=== PATIENT | female | born 1940 | race Caucasian/White ===

== ENCOUNTER 2018-01-26 20:49 | Emergency (ER) | payer MEDICARE, OTHER ==
[2018-01-26 21:47] LABS: ABSOLUTE BASOPHILS # (AUTO) 0.1 10^3/uL (0.0-0.2); ABSOLUTE EOSINOPHILS # (AUTO) 0.4 10^3/uL (0.0-0.6); ABSOLUTE LYMPHOCYTES (AUTO) 1.3 10^3/uL (0.5-4.7); ABSOLUTE MONOCYTES (AUTO) 0.6 10^3/uL (0.1-1.4); ABSOLUTE NEUT (AUTO) 5.4 10^3/uL (1.7-8.2); BASOPHILS % (AUTO) 1.1 % (0-2); EOSINOPHILS % (AUTO) 4.8 % (0-6); HEMATOCRIT 26.8 % (36.0-47.0); HEMOGLOBIN 8.9 g/dL (12.0-15.5); LYMPHOCYTES % (AUTO) 16.5 % (13-45); MEAN CORPUSCULAR HEMOGLOBIN 29.5 pg (27.0-33.4); MEAN CORPUSCULAR HGB CONC 33.4 g/dL (32.0-36.0); MEAN CORPUSCULAR VOLUME 88 fl (80-97); MONOCYTES % (AUTO) 7.5 % (3-13); PLATELET COUNT 284 10^3/uL (150-450); RED BLOOD COUNT 3.03 10^6/uL (3.72-5.28); SEGMENTED NEUTROPHILS % (AUTO) 70.1 % (42-78); TOTAL CELLS COUNTED % (AUTO) 100 %; WHITE BLOOD COUNT 7.7 10^3/uL (4.0-10.5)
[2018-01-26 21:53] LABS: ALANINE AMINOTRANSFERASE 31 U/L (9-52); ALBUMIN 4.3 g/dL (3.5-5.0); ALKALINE PHOSPHATASE 67 U/L (38-126); ANION GAP 10 (5-19); ASPARTATE AMINO TRANSFERASE 33 U/L (14-36); BILIRUBIN,DIRECT 0.4 mg/dL (0.0-0.4); BILIRUBIN,TOTAL 0.6 mg/dL (0.2-1.3); BLOOD UREA NITROGEN 28 mg/dL (7-20); CALCIUM 9.8 mg/dL (8.4-10.2); CARBON DIOXIDE 36 mmol/L (22-30); CHLORIDE 97 mmol/L (98-107); GLUCOSE 134 mg/dL (75-110); POTASSIUM 4.1 mmol/L (3.6-5.0); SODIUM 143.1 mmol/L (137-145); TOTAL PROTEIN 7.2 g/dL (6.3-8.2)
[2018-01-26 22:05] LABS: TROPONIN I 0.03 ng/mL
--- NOTE | 2018-01-26 22:12 | RADIOLOGY REPORT (SQ) ---
EXAM DESCRIPTION: CHEST SINGLE VIEW COMPLETED DATE/TIME: 01/26/2018 9:52 pm REASON FOR STUDY: cp COMPARISON: None. EXAM PARAMETERS: NUMBER OF VIEWS: One view. TECHNIQUE: Single frontal radiographic view of the chest acquired. RADIATION DOSE: NA LIMITATIONS: None. FINDINGS: LUNGS AND PLEURA: There is blunting of the left costophrenic angle suggestive of a small p leural effusion. There is mild bibasilar atelectasis. No pneumothorax. MEDIASTINUM AND HILAR STRUCTURES: No masses. Contour normal. HEART AND VASCULAR STRUCTURES: Heart normal in size. Normal vasculature. BONES: No acute findings. HARDWARE: Sternotomy wires are present. OTHER: There is gaseous distension of the visualized stomach in the left upper quadrant. IMPRESSION: Small left pleural effusion. Mild bibasilar atelectasis. Gaseous distension of the visualized stomach. TECHNICAL DOCUMENTATION: JOB ID: [id number] [employer]- All Rights Reserved Reading location - IP/workstation name: [email or web address]
[2018-01-26] MEDS ORDERED: IPRATROPIUM/ALBUTEROL 0.5-2.5 MG/3 ML AMPUL NEB ONE (23:11)
[2018-01-26] MEDS ORDERED: FUROSEMIDE INJ/PF 20 MG/2 ML SDV IV ONE (23:13)
--- NOTE | 2018-01-26 23:20 | ER Document Report ---
ED General - General Chief Complaint: Chest Pain Stated Complaint: CHEST PAIN Time Seen by Provider: 01/26/18 21:31 Mode of Arrival: Medic Information source: Patient, Outside Facility Records TRAVEL OUTSIDE OF THE [place] IN LAST 30 DAYS: No - HPI Patient complains to provider of: chest pain Onset: Just prior to arrival Onset/Duration: Sudden Quality of pain: Stabbing Severity: Moderate Context: right sided Associated symptoms: None Exacerbated by: Denies Relieved by: Denies Similar symptoms previously: Yes Recently seen / treated by doctor: Yes - Related Data Allergies/Adverse Reactions: Fish Containing Products Allergy (Verified 01/26/18 21:54) Penicillins Allergy (Verified 01/26/18 21:54) Tetracyclines Allergy (Verified 01/26/18 21:54) Past Medical History - General Information source: Patient - Social History Smoking Status: Former Smoker Frequency of alcohol use: None Drug Abuse: None Lives with: Shelter Family History: Hypertension Patient has suicidal ideation: No Patient has homicidal ideation: No - Past Medical History Cardiac Medical History: Reports: Hx Atrial Fibrillation - and A Flutter, Hx Congestive Heart Failure - Diastolic, Hx Coronary Artery Disease, Hx Heart Attack - NSTEMI, Hx Hypercholesterolemia, Hx Hypertension Other: anemia Pulmonary Medical History: Reports: Hx COPD, Hx Pneumonia Neurological Medical History: Reports: None Renal/ Medical History: Denies: Hx Peritoneal Dialysis GI Medical History: Reports: Hx Gastroesophageal Reflux Disease Past Surgical History: Reports: Hx Cardiac Catheterization, Hx Coronary Artery Bypass Graft - 01/10/2018 Review of Systems - Review of Systems Constitutional: No symptoms reported EENT: No symptoms reported Cardiovascular: See HPI Respiratory: See HPI Gastrointestinal: No symptoms reported Genitourinary: No symptoms reported Musculoskeletal: Leg swelling, Ankle swelling Skin: No symptoms reported Hematologic/Lymphatic: Anemia Neurological/Psychological: No symptoms reported Physical Exam - Vital signs Vitals: Pulse Ox 95 01/26/18 20:55 - Notes Notes: PHYSICAL EXAMINATION: GENERAL:Pale, obese female, sitting up in bed watching tv in NAD HEAD: Atraumatic, normocephalic. EYES: Pupils equal round and reactive to light, extraocular movements intact, conjunctiva are normal. ENT: Nares patent, oropharynx clear without exudates. Moist mucous membranes. NECK: Normal range of motion, supple without lymphadenopathy LUNGS: Breath sounds clear to auscultation bilaterally and equal. No wheezes rales or rhonchi. HEART: Regular rate and rhythm ABDOMEN: Soft, nontender, nondistended abdomen. No guarding, no rebound. No masses appreciated. Female : deferred Musculoskeletal: Normal range of motion, +2 pitting edema NEUROLOGICAL: Cranial nerves grossly intact. Normal speech Normal sensory, motor exams PSYCH: Normal mood, normal affect. SKIN: Warm, Dry, normal turgor, no rashes or lesions noted. Healing incisional chest wound without s/s/ infection and healing well. Course - Re-evaluation Re-evalutation: 01/27/18 01:02 Labs- All tests 24 hr 01/26/18 01/26/18 01/26/18 21:03 21:03 21:03 WBC 7.7 RBC 3.03 L Hgb 8.9 L Hct 26.8 L MCV 88 MCH 29.5 MCHC 33.4 RDW 16.0 H Plt Count 284 Seg Neutrophils % 70.1 Lymphocytes % 16.5 Monocytes % 7.5 Eosinophils % 4.8 Basophils % 1.1 Absolute Neutrophils 5.4 Absolute Lymphocytes 1.3 Absolute Monocytes 0.6 Absolute Eosinophils 0.4 Absolute Basophils 0.1 Sodium 143.1 Potassium 4.1 Chloride 97 L Carbon Dioxide 36 H Anion Gap 10 BUN 28 H Creatinine 1.05 Est GFR ( Amer) > 60 Est GFR (Non-Af Amer) 51 L Glucose 134 H Calcium 9.8 Magnesium 1.8 Total Bilirubin 0.6 Direct Bilirubin 0.4 Neonat Total Bilirubin Not Reportable Neonat Direct Bilirubin Not Reportable Neonat Indirect Bili Not Reportable AST 33 ALT 31 Alkaline Phosphatase 67 Troponin I 0.030 NT-Pro-B Natriuret Pep 1230 H Total Protein 7.2 Albumin 4.3 01/26/18 23:54 WBC RBC Hgb Hct MCV MCH MCHC RDW Plt Count Seg Neutrophils % Lymphocytes % Monocytes % Eosinophils % Basophils % Absolute Neutrophils Absolute Lymphocytes Absolute Monocytes Absolute Eosinophils Absolute Basophils Sodium Potassium Chloride Carbon Dioxide Anion Gap BUN Creatinine Est GFR ( Amer) Est GFR (Non-Af Amer) Glucose Calcium Magnesium Total Bilirubin Direct Bilirubin Neonat Total Bilirubin Neonat Direct Bilirubin Neonat Indirect Bili AST ALT Alkaline Phosphatase Troponin I 0.030 NT-Pro-B Natriuret Pep Total Protein Albumin Chest X-Ray 01/26/18 21:31 IMPRESSION: Small left pleural effusion. Mild bibasilar atelectasis. Gaseous distension of the visualized stomach. - Vital Signs Vital signs: Temp Pulse Resp BP Pulse Ox 98.1 F 22 H 132/64 H 99 01/27/18 00:45 01/27/18 00:01 01/27/18 00:01 01/27/18 00:01 - Laboratory Result Diagrams: 01/26/18 21:03 01/26/18 21:03 Laboratory results interpreted by me: 01/26/18 01/26/18 01/26/18 21:03 21:03 21:03 RBC 3.03 L Hgb 8.9 L Hct 26.8 L RDW 16.0 H Chloride 97 L Carbon Dioxide 36 H BUN 28 H Est GFR (Non-Af Amer) 51 L Glucose 134 H NT-Pro-B Natriuret Pep 1230 H - Diagnostic Test Radiology reviewed: Image reviewed, Reports reviewed - EKG Interpretation by Me EKG shows normal: Sinus rhythm - 97 Rate: Normal When compared to previous EKG there are: Previous EKG unavailable Additional EKG results interpreted by me: 01/27/18 01:04 NSST T changes Discharge - Discharge Clinical Impression: Anemia, Edema, Pleural effusion, left Condition: Stable Disposition: HOME-SNF (ED ONLY) Instructions: Chest Wall Pain ([facility]) Additional Instructions: Follow-up with your final inspector and tester as previously scheduled. Please return to the emergency department if you have worsening symptoms. Please continue outpatient medications as previously prescribed. Referrals: FAITH TATE MD [Primary Care Provider] - Follow up tomorrow (call in am for follow up)
[2018-01-27 01:54] VITALS: BP 112/56
--- NOTE | 2018-01-27 10:10 | EKG REPORT ---
SEVERITY:- ABNORMAL ECG - A-FLUTTER W/ PREDOM 3:1 AV BLOCK, CAN NOT R/O SINUS RHYTHM, REC REPEAT EKG NONSPECIFIC T ABNORMALITIES, DIFFUSE LEADS : Confirmed by: William Nieves 27-Jan-2018 10:09:55
== END 2018-01-27 01:56 ==
LOC: ER 20:49
DX: D64.9 Anemia, unspecified (principal); R60.9 Edema, unspecified; J90 Pleural effusion, not elsewhere classified; R07.9 Chest pain, unspecified; I48.91 Unspecified atrial fibrillation; I50.9 Heart failure, unspecified; E78.00 Pure hypercholesterolemia, unspecified; I11.0 Hypertensive heart disease with heart failure; J44.9 Chronic obstructive pulmonary disease, unspecified; Z88.0 Allergy status to penicillin; Z87.891 Personal history of nicotine dependence; I25.2 Old myocardial infarction; Z95.1 Presence of aortocoronary bypass graft
CPT/HCPCS: 93005; 99285; 36415; 83735; 85025; 80053; 84484; 83880; 71045; 93010; J1940; A9270; J7620

== ENCOUNTER 2018-02-03 02:49 | Emergency (ER) | payer MEDICARE, OTHER ==
--- NOTE | 2018-02-03 03:04 | ER Document Report ---
ED General - General Stated Complaint: FALL Time Seen by Provider: 02/03/18 02:53 Notes: Patient is a 78-year-old female presents with complaint of a fall. She said she was getting up in her room turn off the lights when the legs felt weak and she slipped and fell backwards her butt and right hip onto the floor. Said she also the back of her head. She says she has just very mild pain in her head. She denies any vomiting. No confusion. No recent fevers or infections. No other complaints at this time. She is on Eliquis. TRAVEL OUTSIDE OF THE [place] IN LAST 30 DAYS: No - Related Data Allergies/Adverse Reactions: Fish Containing Products Allergy (Verified 01/26/18 21:54) Penicillins Allergy (Verified 01/26/18 21:54) Tetracyclines Allergy (Verified 01/26/18 21:54) Past Medical History - Social History Smoking Status: Unknown if Ever Smoked Frequency of alcohol use: None Drug Abuse: None Family History: Hypertension - Past Medical History Cardiac Medical History: Reports: Hx Atrial Fibrillation - and A Flutter, Hx Congestive Heart Failure - Diastolic, Hx Coronary Artery Disease, Hx Heart Attack - NSTEMI, Hx Hypercholesterolemia, Hx Hypertension Pulmonary Medical History: Reports: Hx COPD, Hx Pneumonia Renal/ Medical History: Denies: Hx Peritoneal Dialysis GI Medical History: Reports: Hx Gastroesophageal Reflux Disease Past Surgical History: Reports: Hx Cardiac Catheterization, Hx Coronary Artery Bypass Graft - 01/10/2018 Review of Systems - Review of Systems Notes: My Normal Review Basic REVIEW OF SYSTEMS: CONSTITUTIONAL : Denies fever, chills, or sweats. Denies recent illness. EENT: Denies eye, ear, throat, or mouth pain or symptoms. Denies nasal or sinus congestion. CARDIOVASCULAR: Denies chest pain. RESPIRATORY: Denies cough, cold, or chest congestion. Denies shortness of breath, difficulty breathing, or wheezing. GASTROINTESTINAL: Denies abdominal pain. Denies nausea, vomiting, or diarrhea. GENITOURINARY: Denies difficulty urinating, painful urination, burning, frequency, or blood in urine. MUSCULOSKELETAL: Pain over tailbone, right hip, right thigh, right knee. SKIN: Denies rash or skin lesions. HEMATOLOGIC : On Eliquis NEUROLOGICAL: Denies altered mental status or loss of consciousness. Mild headache. Denies weakness or paralysis or loss of use of either side. Denies problems with gait or speech. Denies sensory or motor loss. ALL OTHER SYSTEMS REVIEWED AND NEGATIVE. Physical Exam - Vital signs Vitals: Temp Pulse Resp BP Pulse Ox 98.5 F 86 20 110/49 L 95 02/03/18 03:05 02/03/18 03:05 02/03/18 03:05 02/03/18 03:05 02/03/18 03:05 - Notes Notes: General Appearance: Well nourished, alert, cooperative, no acute distress, mild obvious discomfort. Vitals: reviewed, See vital signs table. Head: no swelling or tenderness to the head Eyes: PERRL, EOMI, Conjuctiva clear Mouth: No decreasd moisture Neck: Supple, no neck tenderness, no step-offs or deformities. Back: No pain to palpation of lumbar thoracic spine. No step-offs or deformities. Pain to palpation over sacral area. Lungs: No wheezing, No rales, No rhonci, No accessory muscle use, good air exchange bilaterally. Heart: Normal rate, Regular rythm, No murmur, no rub Abdomen: Normal BS, soft, No rigidity, No abdominal tenderness, No guarding, no rebound, no abdominal masses, no organomegaly Extremities: strength 5/5 in all extremities, good pulses in all extremities, bilateral upper extremities and left lower extremity have no obtained tenderness to palpation and no tenderness with range of motion. Patient has pain with movement of right hip and pain to palpation of her right hip and pelvic region. Pelvis is stable. Pain to palpation of her right knee as well. Good distal pulses. Skin: warm, dry, appropriate color, no rash Neuro: speech clear, oriented x 3, normal affect, responds appropriately to questions. Distal sensation. Cranial nerves II through XII are intact. No focal weakness on exam. Course - Re-evaluation Re-evalutation: 02/03/18 04:32 Reevaluation patient has rolled onto her left side is actually flexed her right hip and right knee on her own without significant pain. There is no obvious deformity on exam and her x-ray is negative. CT scan of her head is negative as well. I informed patient x-rays and CT scans are negative and that we will be discharging home. Return to ER immediately if she has severe headache, vomiting, worsening pain, or she feels unwell. Dictation of this chart was performed using voice recognition software; therefore, there may be some unintended grammatical errors. - Vital Signs Vital signs: Temp Pulse Resp BP Pulse Ox 98.5 F 86 20 110/49 L 95 02/03/18 03:05 02/03/18 03:05 02/03/18 03:05 02/03/18 03:05 02/03/18 03:05 Discharge - Discharge Clinical Impression: Fall Qualifiers: Encounter type: initial encounter Qualified Code(s): W19.XXXA - Unspecified fall, initial encounter Contusion of hip, right Qualifiers: Encounter type: initial encounter Qualified Code(s): S70.01XA - Contusion of right hip, initial encounter Condition: Good Disposition: HOME, SELF-CARE Additional Instructions: Your CT scans and xrays do not show any evidence of fractures or significant injuries. Please only ambulate with help. Please follow up closely with your doctor for reevaluation on Wednesday. Return to the ER immediately if you have severe headache, vomiting, or worsening pain. Referrals: FAITH TATE MD [Primary Care Provider] - 02/07/18
--- NOTE | 2018-02-03 03:51 | RADIOLOGY REPORT (SQ) ---
EXAM DESCRIPTION: CT HEAD WITHOUT IV CONTRAST CLINICAL HISTORY: 78 years Female, trauma COMPARISON: None. TECHNIQUE: No contrast. Coronal and sagittal reformat. This exam was performed according to our departmental dose-optimization program, which includes automated exposure control, adjustment of the mA and/or kV according to patient size and/or use of iterative reconstruction technique. FINDINGS: No hemorrhage or infarct. No mass, mass effect, or midline shift. Mild white matter microangiopathy. Brain and extra-axial structures appear otherwise intact. IMPRESSION: No acute findings.
--- NOTE | 2018-02-03 04:07 | RADIOLOGY REPORT (SQ) ---
EXAM DESCRIPTION: XR KNEE 1-2 VIEWS CLINICAL HISTORY: 78 years Female, trauma COMPARISON: None. Findings: Right total knee arthroplasty.. Small nonspecific lucency at the medial femoral condylar component. No effusion. Surgical clips at the posterior medial aspect of the distal right upper leg.Bones, joints, and soft tissues of the XR KNEE RIGHT 2 VIEWS appear otherwise intact. IMPRESSION: No acute findings.
--- NOTE | 2018-02-03 04:08 | RADIOLOGY REPORT (SQ) ---
EXAM DESCRIPTION: XR SACRUM COCCYX 2 OR MORE VIEWS CLINICAL HISTORY: 78 years Female, trauma COMPARISON: None. Findings: Moderate lower lumbar disc desiccation and spondylosis partially imaged. Atherosclerosis.. Bones, joints, and soft tissues of the XR SACRUM COCCYX 3VIEWS appear otherwise intact. IMPRESSION: No acute findings.
--- NOTE | 2018-02-03 04:09 | RADIOLOGY REPORT (SQ) ---
EXAM DESCRIPTION: XR HIP 2 OR MORE VIEWS CLINICAL HISTORY: 78 years Female, trauma COMPARISON: None. Findings: Moderate lower lumbar disc desiccation. Bones, joints, and soft tissues of the XR RIGHT HIP 2 VIEWS appear otherwise intact. IMPRESSION: No acute findings.
[2018-02-03 06:03] VITALS: BP 107/48
== END 2018-02-03 06:02 | disposition home or self-care (01) ==
LOC: ER 02:49
DX: S70.01XA Contusion of right hip, initial encounter (principal); R51 Headache; M53.3 Sacrococcygeal disorders, not elsewhere classified; M25.551 Pain in right hip; M25.561 Pain in right knee; M79.651 Pain in right thigh; W01.0XXA Fall on same level from slipping, tripping and stumbling without subsequent striking against object, initial encounter; Y93.89 Activity, other specified; Y92.129 Unspecified place in nursing home as the place of occurrence of the external cause; I10 Essential (primary) hypertension; I25.10 Atherosclerotic heart disease of native coronary artery without angina pectoris; I48.91 Unspecified atrial fibrillation; I48.92 Unspecified atrial flutter; Z79.01 Long term (current) use of anticoagulants; Z91.013 Allergy to seafood; Z88.0 Allergy status to penicillin; Z88.1 Allergy status to other antibiotic agents; Z95.1 Presence of aortocoronary bypass graft
CPT/HCPCS: 70450; 72220; 99284